=== PATIENT | male | born 1990 | race Caucasian/White ===

== ENCOUNTER 2017-08-20 17:28 | Emergency (ER) | payer OTHER | END 2017-08-20 17:44 | disposition left against medical advice (07) | LOC: C.EDB 17:29 | DX: M54.2 Cervicalgia (principal) ==

== ENCOUNTER → 2017-08-27 | Outpatient (CLI) | payer OTHER ==
[2017-08-27 17:47] LABS: HEMATOCRIT 41.7 % (42-52); MEAN CELL VOLUME 84.1 fL (80-100); MEAN CORPUSCULAR HEMOGLOBIN 30.2 pg (25-34); MEAN PLATELET VOLUME 9.6 fL (7.4-10.4); PLATELET COUNT 170 K/uL (130-400); RED CELL DISTRIBUTION WIDTH CV 12.9 % (11.5-14.5); RED CELL DISTRIBUTION WIDTH SD 38.6 fL (36.4-46.3); WHITE BLOOD COUNT 8.55 K/uL (4.8-10.8)
== END | disposition home or self-care (01) ==
LOC: C.LAB1850 17:15
PROVIDERS: ATTEND Internal Medicine
DX: R59.9 Enlarged lymph nodes, unspecified (principal)

== ENCOUNTER → 2017-09-27 | Outpatient (CLI) | payer OTHER ==
[2017-09-27 13:52] LABS: BASO % 0.4 %; BASO ABS # 0.02 K/uL (0-0.2); EOS % 2.7 %; EOS ABS # 0.14 K/uL (0-0.5); HEMATOCRIT 42.7 % (42-52); HEMOGLOBIN 15.4 g/dL (14.0-18.0); IG# 0.02 K/uL (0.00-0.02); LYMPH % 43.8 %; LYMPH ABS # 2.26 K/uL (1.2-3.4); MEAN CELL VOLUME 83.9 fL (80-100); MEAN CORPUSCULAR HEMOGLOBIN 30.3 pg (25-34); MEAN CORPUSCULAR HGB CONC 36.1 g/dl (32-36); MEAN PLATELET VOLUME 9.8 fL (7.4-10.4); MONO % 8.1 %; MONO ABS # 0.42 K/uL (0.11-0.59); NEUT % 44.6 %; PLATELET COUNT 186 K/uL (130-400); RED CELL DISTRIBUTION WIDTH CV 13.2 % (11.5-14.5); RED CELL DISTRIBUTION WIDTH SD 39.7 fL (36.4-46.3); WHITE BLOOD COUNT 5.16 K/uL (4.8-10.8)
== END | disposition home or self-care (01) ==
LOC: C.LABBC 12:11
PROVIDERS: ATTEND Nurse Practitioner Adult Health
DX: R59.9 Enlarged lymph nodes, unspecified (principal)

== ENCOUNTER → 2017-10-02 | Outpatient (CLI) | payer OTHER ==
--- NOTE | 2017-10-02 16:32 | DIAGNOSTIC IMAGING REPORT ---
NECK ULTRASOUND CLINICAL HISTORY: Lymph node enlargement. COMPARISON STUDY: None. TECHNIQUE: Sonography of the neck was performed. FINDINGS: A left lateral cervical lymph node is mildly enlarged, measuring 1.4 x 1 x 1 cm. This node contains a fatty hilum. The cortex is mildly thickened. There is an adjacent 1 cm left lateral cervical lymph node which demonstrates cortical thickening. A left level 2 node is enlarged, measuring 2.8 x 1.1 cm. Several mildly enlarged right-sided cervical lymph nodes are also noted. The majority, if not all, of these nodes contain fatty sujey. IMPRESSION: Multiple mildly enlarged bilateral cervical lymph nodes with an index 2.8 x 1.1 cm left level 2 cervical node. These nodes are nonspecific although likely reactive. Clinical follow up to ensure stability is recommended. If interval enlargement, repeat ultrasound is recommended to exclude the much less likely possibility of a lymphoproliferative disorder. Electronically signed by: Naman Jin M.D. 10/02/2017 4:31 PM Dictated Date/Time: 10/02/2017 4:27 PM
== END | disposition home or self-care (01) ==
LOC: C.ULTR 15:47
PROVIDERS: ATTEND Nurse Practitioner Adult Health
DX: R59.9 Enlarged lymph nodes, unspecified (principal)